=== PATIENT | female | born 1935 | race Caucasian/White ===

== ENCOUNTER → 2018-01-18 | Outpatient (CLI) | payer MEDICARE ==
[~2018-01-18] VITALS: Ht 149.9 cm; Wt 63.0 kg
[~2018-01-18] MED LIST: AMLO-512 PO; ATOR10TA84 PO; BUDE10.2 IH; CYCL5TAB PO; FLUT16H NASAL; MONT10TA21 PO; VITAD1000 PO
[2018-01-18 12:47] VITALS: BP 145/67
== END | disposition home or self-care (01) ==
LOC: SRCNTR 12:27
PROVIDERS: ATTEND Internal Medicine Critical Care Medicine
DX: J45.31 Mild persistent asthma with (acute) exacerbation (principal); E78.2 Mixed hyperlipidemia; I10 Essential (primary) hypertension
CPT/HCPCS: G0463